=== PATIENT | male | born 1950 | race Caucasian/White ===

== ENCOUNTER → 2019-03-25 14:06 | Outpatient (CLI) | payer MEDICARE, SELFPAY | PROVIDERS: PCP Family Medicine; Visit Provider Family Medicine | DX: M81.0 Age-related osteoporosis without current pathological fracture (principal) | CPT/HCPCS: 77080 ==

== ENCOUNTER 2019-06-08 09:05 | Emergency (ER) | payer MEDICARE, SELFPAY ==
[2019-06-08 09:15] VITALS: BP 155/79; PULSE 67; RESP 18; TEMP 37.1; O2SAT 92; BMI 19.8
--- NOTE | 2019-06-08 11:11 | DI.RAD.S_ITS ---
PROCEDURE: XR CHEST 2V INDICATIONS: r/o pneumonia TECHNIQUE: 2 views of the chest were acquired. COMPARISON: [facility], CR, XR ABDOMEN 1 VIEW, 07/18/2017, 14:05. FINDINGS: Surgical changes and devices: None. Lungs and pleura: Linear areas of increased attenuation are identified at the left lung base, which are new since the previous exam. A similar appearance to a much lesser degree is present at the left lung base. Mediastinum: Mediastinal contours are normal. Heart size is normal. Bones and chest wall: No suspicious bony abnormalities. Extra convex curvature of the lumbar spine is present. Degenerative changes of the shoulders and spine are present, but not well characterized. Soft tissues appear unremarkable. IMPRESSION: Right basilar consolidation probably represents atelectasis. Superimposed pneumonia may be present. Please correlate clinically. Dictated by: Joo Ansari M.D. on 06/08/2019 at 10:55 Approved by: Joo Ansari M.D. on 06/08/2019 at 10:56
[2019-06-08 11:22] LABS: Add Manual Diff / Slide Review NO; Basophils Absolute Auto 0 /uL (0-100); Basophils Percent Auto 0.2 % (0-2); Eosinophils Absolute Auto 0 /uL (0-450); Eosinophils Percent Auto 0.2 % (2-4); Hematocrit 40.7 % (41-53); Hemoglobin 13.5 g/dL (13.5-17.5); Lymphocytes Absolute Auto 1900 /uL (1100-4500); Lymphocytes Percent Auto 12.6 % (25-40); Mean Corpuscular HGB Conc 33.3 % (30-36); Mean Corpuscular Hemoglobin 27.9 PG (26-34); Mean Corpuscular Volume 83.7 fL (80-100); Monocytes Absolute Auto 1100 /uL (0-900); Monocytes Percent Auto 7.1 % (3-14); Neutrophils Absolute Auto 12100 /uL (1500-7000); Neutrophils Percent Auto 79.9 % (50-75); Platelet Count 263 X10^3/uL (150-400); Red Blood Cell Count 4.86 X10^6/uL (4.5-5.9); Red Cell Distribution Width 15.3 % (11.6-14.8); White Blood Cell Count 15.1 X10^3/uL (4.5-11.0)
[2019-06-08 11:27] LABS: BUN Creatinine Ratio 26.3 (6-22); Blood Urea Nitrogen 21 mg/dL (9-20); Carbon Dioxide 36 mmol/L (22-32); Chloride 94 mmol/L (98-107); Estimated Glomerular Filt Rate > 60.0 mL/min (>60); Glucose 91 mg/dL (80-110); HEMOLYSIS < 15 (0-50); Potassium 4.2 mmol/L (3.4-5.1); Sodium 136 mmol/L (137-145)
[2019-06-08 11:43] LABS: C-Reactive Protein Quant 8.8 mg/dL (<1.0)
[2019-06-08 11:50] LABS: Erythrocyte Sedimentation Rate 23 MM/HR (0-15)
--- NOTE | 2019-06-08 12:06 | ED.FEVER ---
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 Patient states his ancestry is asking nauseated [facility], but that he is the only person in his family afflicted by the Mediterranean fever. Patient states that his symptoms began yesterday. He states his temperature at highest was less than 101. He states he has a pain in his right side, inside the rib cage. He states this is his usual focus of pain when he has a flare-up. The patient denies any other symptoms that are unusual. No nausea or vomiting. No abdominal pain. No sore throat or body aches. No shortness of breath. The patient states he is fairly healthy otherwise. No other complaints at this time. He states he is not currently taking colchicine chronically. Related Data Home Medications Medication Instructions Recorded Confirmed loperamide [Imodium A-D] 1 mg PO PRN PRN #0 01/03/16 alfuzosin 10 mg PO QDAY #0 06/01/16 Previous Rx's Medication Instructions Recorded TEMAZEPAM (RESTORIL) 15 mg PO HS #30 05/14/12 fluticasone propionate 2 spray INTRANASAL QDAY #1 spray 06/08/16 alendronate [Fosamax] 0 PO QWEEK #12 tab 11/21/16 colchicine 0.6 mg PO BID #20 cap 06/08/19 Review of Systems Constitutional Constitutional: Denies chills, Denies fatigue, Reports fever(s), Denies frequent falls, Denies lethargy and Denies weakness Eyes Eyes: Denies change in vision, Denies eye discharge, Denies irritation and Denies loss of vision ENT Ears, Nose, Mouth, and Throat: Denies change in voice, Denies dizziness, Denies neck pain, Denies sore throat and Denies throat swelling Cardiovascular Cardiovascular: Reports chest pain (Right lateral), Denies irregular heart rhythm, Denies lightheadedness, Denies palpitations, Denies dyspnea, Denies dyspnea on exertion and Denies orthopnea Respiratory Respiratory: Denies cough, Denies dyspnea, Denies dyspnea on exertion and Denies wheezing Gastrointestinal Gastrointestinal: Denies abdominal pain, Denies change in bowel habits, Denies diarrhea, Denies nausea and Denies vomiting Genitourinary Genitourinary: Denies hematuria, Denies flank pain, Denies urinary incontinence and Denies urinary urgency Musculoskeletal Musculoskeletal: Denies back pain, Denies muscle weakness, Denies neck pain, Denies numbness and Denies tingling Integumentary/Breasts Skin/Breast: Denies pruritus, Denies erythema, Denies rash and Denies wounds Neurologic Neurologic: Denies behavioral changes, Denies confusion, Denies dizziness, Denies frequent falls, Denies loss of vision, Denies numbness, Denies tingling and Denies weakness Psychiatric Psychiatric: Denies anxiety, Denies behavioral changes, Denies confusion, Denies depression, Denies homicidal ideation and Denies suicidal ideation Endocrine Endocrine: Denies fatigue, Denies flushing and Denies palpitations Hematologic/Lymphatic Hematologic/Lymphatic: Denies easy bruising Allergic/Immunologic Allergic/Immunologic: Denies urticaria, Denies throat swelling and Denies wheezing Patient History Medical History Age-related osteoporosis without current pathological fracture (11/16/16) Benign non-nodular prostatic hyperplasia with lower urinary tract symptoms (12/02/15) Familial Mediterranean fever (Acute) Gastroesophageal reflux disease without esophagitis (01/03/16) History of renal calculi (01/03/16) Hypercalcemia (01/03/16) Hyperparathyroidism (10/27/16) Mixed hyperlipidemia (01/03/16) Neutropenia (01/03/16) Polyp of colon (11/21/16) Primary insomnia (01/03/16) Retention of urine (12/02/15) Seasonal allergic rhinitis due to pollen (01/03/16) Tinnitus of both ears (01/03/16) Social History Smoking Status: Never smoker Exam Initial Vital Signs Initial Vital Signs: Vital Signs Temperature 98.7 F 06/08/19 09:15 Pulse Rate 67 06/08/19 09:15 Respiratory Rate 18 06/08/19 09:15 Blood Pressure 155/79 H 06/08/19 09:15 Pulse Oximetry 92 06/08/19 09:15 Const General: cooperative and well developed Nutritional Appearance: well nourished [facility] Head: normocephalic and atraumatic Ears: external ears normal Nose: external nose normal and No nasal discharge Face and sinus: face symmetric and No dry mucous membranes Mouth: oral mucosae normal and moist mucous membranes Teeth and gingiva: dentition normal Eyes General: appearance normal, both eyes and all related structures Eyelids: eyelids normal Conjunctivae: conjunctivae normal Sclera: sclerae normal Pupils: PERRL EOM: EOM intact bilaterally Neck Neck: normal visual inspection, trachea midline, No lymphadenopathy, No midline deformity and No JVD Lymphatic: No lymphedema Chest Chest: normal inspection of the chest Resp Effort & Inspection: normal respiratory effort, able to speak in complete sentences, no respiratory distress and no use of accessory muscles Auscultation: clear to auscultation bilaterally, no rales, no rhonchi and no wheezes Cardio Rate: regular rate Rhythm: regular rhythm Heart Sounds: no click, no gallops, no murmurs and no rubs Pulses: normal peripheral pulses GI Inspection: non-distended Palpation: soft, no hepatosplenomegaly, No guarding, No pulsatile mass and No tender Auscultation: normal bowel sounds Back/Spine/Pelvis Back: No CVA tenderness Cervical Spine: cervical ROM normal and No pain with cervical ROM Thoracic/Lumbar Spine: thoracic and lumbar spine normal to inspection Skin General: no rashes or lesions noted, No jaundice and No petechiae Neuro General: alert, oriented x3, gait normal and no focal motor deficits Speech: speech normal Extrem General: full ROM, no clubbing, cyanosis or edema, no pedal edema and no calf tenderness Psych Appearance: well kempt Mental Status: mental status grossly normal Attitude: cooperative Thought Content: normal and suicidality Judgment: judgment good Course Course Course Narrative: The patient was treated with colchicine in the emergency department worked up with labs, which white blood cell count elevation and also elevations of the CRP and sed rate. Chest x-ray was unremarkable. I have given the patient prescription for colchicine. We've discussed home management of the symptoms, as well as the usual indications for return. At this time, the patient does not have symptoms that are different from those of his usual FMF flare ups, and no other cause has been found on workup. The patient is stable for discharge home. Orders Ordered: Discontinued Medications Colchicine (Colcrys) 0.6 mg PO NOW ONE Stop: 06/08/19 11:59 Last Admin: 06/08/19 12:08 Dose: 0.6 mg Documented by: CAROLINA Vital Signs Vital signs: Vital Signs - 8 hr 06/08/19 09:15 Temperature 98.7 F Pulse Rate 67 Respiratory Rate 18 Blood Pressure 155/79 H Pulse Oximetry 92 MDM - Fever Medical Records Attestation: I reviewed the patient's medical records. Lab Data Attestation: I reviewed the patient's lab results. Result diagrams: 06/08/19 10:55 06/08/19 10:55 Labs: Lab Results 06/08/19 06/08/19 06/08/19 Range/Units 10:55 10:55 10:55 WBC 15.1 H (4.5-11.0) X10^3/uL RBC 4.86 (4.5-5.9) X10^6/uL Hgb 13.5 (13.5-17.5) g/dL Hct 40.7 L (41-53) % MCV 83.7 (80-100) fL MCH 27.9 (26-34) PG MCHC 33.3 (30-36) % RDW 15.3 H (11.6-14.8) % Plt Count 263 (150-400) X10^3/uL Neut % (Auto) 79.9 H (50-75) % Lymph % (Auto) 12.6 L (25-40) % Isabella % (Auto) 7.1 (3-14) % Eos % (Auto) 0.2 L (2-4) % Baso % (Auto) 0.2 (0-2) % Neut # (Auto) 36911 H (8541-0756) /uL Lymph # (Auto) 1900 (7793-9662) /uL Isabella # (Auto) 1100 H (0-900) /uL Eos # (Auto) 0 (0-450) /uL Baso # (Auto) 0 (0-100) /uL ESR 23 H (0-15) MM/HR Sodium 136 L (137-145) mmol/L Potassium 4.2 (3.4-5.1) mmol/L Chloride 94 L (98-107) mmol/L Carbon Dioxide 36 H (22-32) mmol/L BUN 21 H (9-20) mg/dL Creatinine 0.80 (0.66-1.25) mg/dL Estimated GFR > 60.0 (>60) mL/min BUN/Creatinine Ratio 26.3 H (6-22) Glucose 91 (80-110) mg/dL Calcium 9.0 (8.4-10.2) mg/dL C-Reactive Protein (<1.0) mg/dL 06/08/19 Range/Units 10:55 WBC (4.5-11.0) X10^3/uL RBC (4.5-5.9) X10^6/uL Hgb (13.5-17.5) g/dL Hct (41-53) % MCV (80-100) fL MCH (26-34) PG MCHC (30-36) % RDW (11.6-14.8) % Plt Count (150-400) X10^3/uL Neut % (Auto) (50-75) % Lymph % (Auto) (25-40) % Isabella % (Auto) (3-14) % Eos % (Auto) (2-4) % Baso % (Auto) (0-2) % Neut # (Auto) (3771-4901) /uL Lymph # (Auto) (0939-7205) /uL Isabella # (Auto) (0-900) /uL Eos # (Auto) (0-450) /uL Baso # (Auto) (0-100) /uL ESR (0-15) MM/HR Sodium (137-145) mmol/L Potassium (3.4-5.1) mmol/L Chloride (98-107) mmol/L Carbon Dioxide (22-32) mmol/L BUN (9-20) mg/dL Creatinine (0.66-1.25) mg/dL Estimated GFR (>60) mL/min BUN/Creatinine Ratio (6-22) Glucose (80-110) mg/dL Calcium (8.4-10.2) mg/dL C-Reactive Protein 8.8 H (<1.0) mg/dL Imaging Data Chest x-ray: My Impression: PROCEDURE: XR CHEST 2V INDICATIONS: r/o pneumonia TECHNIQUE: 2 views of the chest were acquired. COMPARISON: [facility], CR, XR ABDOMEN 1 VIEW, 07/18/2017, 14:05. FINDINGS: Surgical changes and devices: None. Lungs and pleura: Linear areas of increased attenuation are identified at the left lung base, which are new since the previous exam. A similar appearance to a much lesser degree is present at the left lung base. Mediastinum: Mediastinal contours are normal. Heart size is normal. Bones and chest wall: No suspicious bony abnormalities. Extra convex curvature of the lumbar spine is present. Degenerative changes of the shoulders and spine are present, but not well characterized. Soft tissues appear unremarkable. IMPRESSION: Right basilar consolidation probably represents atelectasis. Superimposed pneumonia may be present. Please correlate clinically. Dictated by: Joo Ansari M.D. on 06/08/2019 at 10:55 Approved by: Joo Ansari M.D. on 06/08/2019 at 10:56 Discharge Plan Departure Patient Disposition: Home Clinical Impression: Chest pain, pleuritic, Familial Mediterranean fever Discharge Date/Time: 06/08/19 12:16 Instructions: DI for Chest Pain Prescriptions: New colchicine 0.6 mg capsule 0.6 mg PO BID Qty: 20 RF: 0 No Action TEMAZEPAM (RESTORIL) 15 mg PO HS Qty: 30 RF: 0 loperamide [Imodium A-D] 1 MG/7.5 ML liquid 1 mg PO PRN PRNQty: 0 RF: 0 alfuzosin 10 MG tablet extended release 24 hr 10 mg PO QDAY Qty: 0 RF: 0 fluticasone propionate 16 GM spray,suspension 2 spray Intranasal QDAY Qty: 1 RF: 1 alendronate [Fosamax] 70 MG tablet 0 PO QWEEK Qty: 12 RF: 3 Referrals: Anders Wasserman MD [Primary Care Provider] -
[2019-06-08] MEDS: COLCHICINE 0.6 MG TABLET PO (12:08)
[2019-06-08 12:10] VITALS: BP 133/76; PULSE 63; RESP 17; O2SAT 97
== END 2019-06-08 12:16 | disposition home or self-care (01) ==
PROVIDERS: Emergency Provider Emergency Medicine; PCP Family Medicine
DX: R07.81 Pleurodynia (principal); M04.1 Periodic fever syndromes; R79.89 Other specified abnormal findings of blood chemistry
CPT/HCPCS: 36415; 71046; 80048; 85025; 85651; 86140; 99284

== ENCOUNTER 2021-06-09 17:04 | Emergency (ER) | payer MEDICARE, SELFPAY ==
[2021-06-09 17:20] VITALS: BP 164/92; PULSE 70; RESP 18; TEMP 37.2; O2SAT 98; BMI 20.5
--- NOTE | 2021-06-09 17:40 | DI.RAD.S_ITS ---
PROCEDURE: XR RIBS LT MIN 3V W CXR1V INDICATIONS: fall TECHNIQUE: To views of the left ribs were acquired, along with a single view chest. COMPARISON: None. FINDINGS: Surgical changes and devices: None. Bones and chest wall: Subtle cortical irregularity involving left posterior 6th and 7th ribs concerning for minimally displaced left posterior rib fractures. No suspicious bony lesions. Overlying soft tissues appear unremarkable. Lungs and pleura: Blunting of left costophrenic angle is seen suggestive of small left pleural effusion and left basilar atelectasis. No definite focal infiltrate. No gross pneumothorax. Chronic emphysematous changes are noted. Mediastinum: Mediastinal contours appear normal. Heart size is normal. IMPRESSION: Suggestion of subtle left posterior lateral 6th and 7th rib fractures with small left pleural effusion and left basilar atelectasis. No gross pneumothorax. Dictated by: Fabrice Gibson M.D. on 06/09/2021 at 18:04 Approved by: Fabrice Gibson M.D. on 06/09/2021 at 18:06
--- NOTE | 2021-06-09 17:57 | ED.FALL ---
HPI - Fall <Caitie Garcia [facility] - Last Filed: 06/09/21 19:26> General Chief Complaint: Fall Stated Complaint: Fall,Broken Ribs,Fluid in Lungs Time Seen by Provider: 06/09/21 17:57 Source: patient Mode of arrival: Wheelchair History of Present Illness HPI Narrative: 70-year-old male presents to the emergency department for left rib pain, shortness of breath after having 2 falls in the last week. Patient reports he fell again 2 days ago and he has been having shortness of breath since. He denies any wheezing, he reports that he is more short of breath when he lays flat but it is tolerable when he is sitting upright. Patient reports that he took some leftover Percocet for the pain last week, and it helped him go to sleep. Patient denies having a fever, he denies nausea or vomiting, he reports that he has been using a wheelchair a little bit more to get around so that he does not fall. Patient reports that he lives at home with his , and they help each other. Patient reports his fall was due to tripping on something and he did not lose consciousness or hit his head. Related Data Home Medications Medication Instructions Recorded Confirmed loperamide 1 mg/7.5 mL oral liquid 1 mg PO PRN PRN #0 01/03/16 (Imodium A-D) alfuzosin 10 mg tablet,extended 10 mg PO QDAY #0 06/01/16 release 24 hr Previous Rx's Medication Instructions Recorded TEMAZEPAM (RESTORIL) 15 mg PO HS #30 05/14/12 fluticasone propionate 50 2 spray INTRANASAL QDAY #1 spray 06/08/16 mcg/actuation nasal spray,suspension alendronate 70 mg tablet (Fosamax) 0 PO QWEEK #12 tab 11/21/16 colchicine 0.6 mg capsule 0.6 mg PO BID #20 cap 06/08/19 amoxicillin 875 mg-potassium 1 tab PO BID 7 Days #14 tab 06/09/21 clavulanate 125 mg tablet (Augmentin) amoxicillin 875 mg-potassium 1 tab PO BID 7 Days #14 tab 06/09/21 clavulanate 125 mg tablet (Augmentin) hydrocodone 5 mg-acetaminophen 325 1 tab PO BID PRN #7 tab 06/09/21 mg tablet amoxicillin 875 mg-potassium 1 tab PO BID #14 tab 06/10/21 clavulanate 125 mg tablet (Augmentin) Review of Systems <TERESITA Khan - Last Filed: 06/09/21 19:26> Review of Systems Narrative: General: denies fever, chills Head/Neck: denies headache, neck pain Eyes: denies visual changes, eye pain Cardio: denies chest pain, chest pressure or palpitations Respiratory: Endorses mild shortness of breath with occasional nonproductive cough GI: denies abdominal pain, nausea, vomiting, or diarrhea : denies dysuria, hematuria MSK: denies joint pain, muscle weakness Skin: denies rash, itching Neuro: denies numbness, tingling Patient History <TERESITA Khan - Last Filed: 06/09/21 19:26> Medical History Age-related osteoporosis without current pathological fracture (11/16/16) Benign non-nodular prostatic hyperplasia with lower urinary tract symptoms (12/02/15) Familial Mediterranean fever Gastroesophageal reflux disease without esophagitis (01/03/16) History of renal calculi (01/03/16) Hypercalcemia (01/03/16) Hyperparathyroidism (10/27/16) Mixed hyperlipidemia (01/03/16) Neutropenia (01/03/16) Polyp of colon (11/21/16) Primary insomnia (01/03/16) Retention of urine (12/02/15) Seasonal allergic rhinitis due to pollen (01/03/16) Tinnitus of both ears (01/03/16) Social History Smoking Status: Never smoker Smoking Status: Never smoker Substance Use Type: does not use Exam <TERESITA Khan - Last Filed: 06/09/21 19:26> Narrative Exam Narrative: Independently reviewed vitals signs and nursing notes. General: Awake, alert, nontoxic, no cardiorespiratory distress Head/Neck: Atraumatic, neck full range of motion Eyes: EOMI, conjunctiva normal Nose: nares patent, no rhinorrhea Mouth/Throat: moist mucus membranes, posterior pharynx normal, no oral lesions Cardio: Regular rate and rhythm, no peripheral edema Respiratory: respirations unlabored without wheezing, stridor, or rales. No retractions., left lower lobe with mild amount of crackles, this is consistent with his atelectasis on x-ray. Patient does have tenderness to the posterior area between his 6th and 8th rib. X-ray shows that his ribs 6. And 7 are fractured without signs of pneumothorax. Breath sounds are clear throughout all other lobes GI: Abdomen soft, nontender to palpation MSK: Moves all extremities, neurovascularly intact Skin: Normal capillary refill, no rash Neuro: Normal speech and cognition, normal gait Initial Vital Signs Initial Vital Signs: Vital Signs Temperature 98.9 F 06/09/21 17:20 Pulse Rate 70 06/09/21 17:20 Respiratory Rate 18 06/09/21 17:20 Blood Pressure 164/92 H 06/09/21 17:20 Pulse Oximetry 98 06/09/21 17:20 <Anaylei Rios DO - Last Filed: 06/10/21 08:00> Initial Vital Signs Initial Vital Signs: Vital Signs Temperature 98.9 F 06/09/21 17:20 Pulse Rate 70 06/09/21 17:20 Respiratory Rate 18 06/09/21 17:20 Blood Pressure 164/92 H 06/09/21 17:20 Pulse Oximetry 98 06/09/21 17:20 Course <TERESITA Khan - Last Filed: 06/09/21 19:26> Orders Ordered: Discontinued Medications Hydrocodone Bitart/Acetaminophen (Hydrocodone/Acet 5/325 Prepack) 1 bottle MISC SEEINSTR ONE Stop: 06/09/21 18:09 Last Admin: 06/09/21 18:30 Dose: 1 bottle Documented by: RICARDO Amoxicillin/Clavulanate Potassium (Amoxicillin/Clav 875/125 Mg) 1 tab PO NOW ONE Stop: 06/09/21 18:09 Last Admin: 06/09/21 18:30 Dose: 1 tab Documented by: RICARDO Vital Signs Vital signs: Vital Signs - 8 hr 06/09/21 17:20 Temperature 98.9 F Pulse Rate 70 Respiratory Rate 18 Blood Pressure 164/92 H Pulse Oximetry 98 <Anayeli Rios DO - Last Filed: 06/10/21 08:00> Orders Ordered: Discontinued Medications Hydrocodone Bitart/Acetaminophen (Hydrocodone/Acet 5/325 Prepack) 1 bottle MISC SEEINSTR ONE Stop: 06/09/21 18:09 Last Admin: 06/09/21 18:30 Dose: 1 bottle Documented by: RICARDO Amoxicillin/Clavulanate Potassium (Amoxicillin/Clav 875/125 Mg) 1 tab PO NOW ONE Stop: 06/09/21 18:09 Last Admin: 06/09/21 18:30 Dose: 1 tab Documented by: RICARDO Vital Signs Vital signs: Vital Signs - 8 hr 06/09/21 17:20 Temperature 98.9 F Pulse Rate 70 Respiratory Rate 18 Blood Pressure 164/92 H Pulse Oximetry 98 MDM - Fall <Caitie Garcia [facility] - Last Filed: 06/09/21 19:26> Imaging Data Chest x-ray: Radiologist's Impression: PROCEDURE:? XR CHEST 2V ? INDICATIONS:? r/o pneumonia ? TECHNIQUE:? 2 views of the chest were acquired.? ? COMPARISON:? [facility], CR, XR ABDOMEN 1 VIEW, 07/18/2017, 14:05. ? FINDINGS:? ? Surgical changes and devices:? None.? ? Lungs and pleura: Linear areas of increased attenuation are identified at the left lung base, which are new since the previous exam.? A similar appearance to a much lesser degree is present at the left lung base. ? Mediastinum:? Mediastinal contours are normal.? Heart size is normal.? ? Bones and chest wall:? No suspicious bony abnormalities.? Extra convex curvature of the lumbar spine is present.? Degenerative changes of the shoulders and spine are present, but not well characterized. Soft tissues appear unremarkable.? ? IMPRESSION: Right basilar consolidation probably represents atelectasis.?Superimposed pneumonia may be present.? Please correlate clinically. ?? ? Dictated by: Joo Ansari M.D. on 06/08/2019 at 10:55 ? ? Approved by: Joo Ansari M.D. on 06/08/2019 at 10:56 ? [facility] Narrative Medical decision making narrative: 70-year-old male presents to the emergency department complaining of left posterior rib pain and occasional shortness of breath with exertion. Patient has had 2 falls over the last week and reports that he has had left rib pain since his 1st fall. He tripped on something at that time he denies any dizziness, hitting his head, or loss of consciousness. He is not on any blood thinners. Patient with mild crackles left lower lobe, x-ray shows left posterior lateral 6th and 7th rib fractures with small left pleural effusion and left basilar atelectasis without any gross pneumothorax. Multiple causes of chest pain considered including DE, PE, pneumothorax, pneumonia, aortic dissection, and pleurisy. Patient reports no radiation, no diaphoresis, no provocation with exertion, and no vomiting. Recommended patient follow-up with Dr. Wasserman within a week for recheck. Patient understands to return to the emergency department for worsening shortness of breath, fever, lethargy, or pain which he can not manage. Patient is appropriate and amenable to discharge home. Vital signs are stable on repeat examination is unremarkable. Patient has been informed of results. Patient has been given strict return to ER precautions for any new or worsening symptoms. Patient understands to follow up closely with outpatient providers as instructed. Patient understands plan and agrees to discharge home. All questions and concerns answered at this time. Discharge Plan Departure Patient Disposition: Home Clinical Impression: Pleural effusion Pneumonia Qualifiers: Pneumonia type: due to unspecified organism Laterality: left Lung location: lower lobe of lung Qualified Code(s): J18.9 - Pneumonia, unspecified organism Closed rib fracture Qualifiers: Encounter type: subsequent encounter Rib fracture type: multiple ribs Laterality: left Fracture healing: with routine healing Qualified Code(s): S22.42XD - Multiple fractures of ribs, left side, subsequent encounter for fracture with routine healing Instructions: How to Prevent Falls Activity Restrictions/Additional Instructions: *You have been diagnosed with rib fractures of your 6th and 7th ribs, a small pleural effusion on the left with pneumonia in the base of your left lung. Try to stay upright as much as possible during the day, rest when you need to, remember to take deep breaths every hour and cough to clear your secretions. Use Tylenol or ibuprofen as needed for fever, wear your arm sling if it is helpful when your out of bed. Please follow-up with Dr. Wasserman in 1-2 weeks. I hope you feel better soon, stay hydrated, I have sent an antibiotic to your pharmacy. *What to do: *Please continue to take your regular medications as directed. [ x] New medication prescriptions sent to your pharmacy: [[facility] ] [ ] New medication written as a paper prescription [ ] No new medications given *Please follow up with your primary care provider in 2-3 days, call for an appointment. Let them know you were seen in the Emergency Department and that we ask that you be seen in follow up. We will electronically transmit a record of today's note if your PCP is in our system *If you do not have a primary care provider please contact the [facility] Resource line at [phone]. They will ask some questions about your medical history and help get you set up with a doctor in the community. *Return to Emergency Department if you should have any new, worsening or concerning symptoms, such as [fever greater than 101F, chills, worsening pain, persistent vomiting or other bothersome symptoms] Prescriptions: New amoxicillin-pot clavulanate [Augmentin] 875-125 mg tablet 1 tab PO BID 7 Days Qty: 14 0RF amoxicillin-pot clavulanate [Augmentin] 875-125 mg tablet 1 tab PO BID 7 Days Qty: 14 0RF hydrocodone-acetaminophen 5-325 mg tablet 1 tab PO BID PRN (Reason: pain) Qty: 7 0RF amoxicillin-pot clavulanate [Augmentin] 875-125 mg tablet 1 tab PO BID Qty: 14 0RF No Action TEMAZEPAM (RESTORIL) 15 mg PO HS Qty: 30 0RF loperamide [Imodium A-D] 1 MG/7.5 ML liquid 1 mg PO PRN PRNQty: 0 0RF alfuzosin 10 MG tablet extended release 24 hr 10 mg PO QDAY Qty: 0 0RF fluticasone propionate 16 GM spray,suspension 2 spray Intranasal QDAY Qty: 1 1RF alendronate [Fosamax] 70 MG tablet 0 PO QWEEK Qty: 12 3RF colchicine 0.6 mg capsule 0.6 mg PO BID Qty: 20 0RF Referrals: Anders Wasserman MD [Primary Care Provider] - <Anayeli Rios DO - Last Filed: 06/10/21 08:00> Cosign ED Attending Cosignature Attestation: Diagnosed day bonner has been reviewed.
[2021-06-09] MEDS: HYDROCODONE/ACET 5/325 PREPACK 1 BOTTLE MISC (18:30)
[2021-06-09] MEDS: AMOXICILLIN/CLAV 875/125 MG 1 TAB PO (18:30)
== END 2021-06-09 18:40 | disposition home or self-care (01) ==
PROVIDERS: Emergency Provider Nurse Practitioner Critical Care Medicine; PCP Family Medicine
DX: S22.42XA Multiple fractures of ribs, left side, initial encounter for closed fracture (principal); J18.9 Pneumonia, unspecified organism; W19.XXXA Unspecified fall, initial encounter
CPT/HCPCS: 71101; 99283

== ENCOUNTER → 2021-07-17 11:29 | Outpatient (CLI) | payer MEDICARE, SELFPAY ==
--- NOTE | 2021-07-17 11:32 | DI.RAD.S_ITS ---
PROCEDURE: XR RIBS LT MIN 3V W CXR1V INDICATIONS: Fall TECHNIQUE: 2 views of the left ribs were acquired, along with a single view chest. COMPARISON: [facility], CR, XR RIBS LT MIN 3V W CXR1V, 06/09/2021, 17:37. FINDINGS: Surgical changes and devices: None. Bones and chest wall: A marker is placed upon the area of clinical concern. Within this region, no displaced rib fracture or other significant rib abnormality can be seen. There are mildly displaced, healing left posterior lateral 6th, 7th, and 8th rib fractures. No suspicious bony lesions. Age-appropriate bony degenerative changes are seen. S-shaped scoliotic curvature is seen. Overlying soft tissues appear unremarkable. Lungs and pleura: No pleural effusions or pneumothorax. Lungs appear clear. Mediastinum: Mediastinal contours appear normal. Heart size is normal. IMPRESSION: No acute fractures are seen. Healing fractures of the left 6th, 7th, and 8th rib fractures. No pneumothorax. Scoliosis. Dictated by: Nagi Pink M.D. on 07/17/2021 at 10:55 Approved by: Nagi Pink M.D. on 07/17/2021 at 10:57
== END ==
PROVIDERS: PCP Family Medicine; Referring Provider Physician Assistant; Visit Provider Physician Assistant
DX: S22.42XD Multiple fractures of ribs, left side, subsequent encounter for fracture with routine healing (principal); R07.81 Pleurodynia; M41.9 Scoliosis, unspecified
CPT/HCPCS: 71101

== ENCOUNTER 2021-12-07 19:10 | Observation (INO) | payer MEDICARE, SELFPAY ==
[2021-12-07 19:13] VITALS: BP 176/89; PULSE 74; RESP 18; TEMP 36.6; O2SAT 98; BMI 19.8
--- NOTE | 2021-12-07 19:18 | ED.SKABFB ---
HPI - Skin/Abscess/Foreign Bdy General Chief complaint: Skin/Abscess/Foreign Body Stated complaint: FB stuck in throat Time Seen by Provider: 12/07/21 19:17 Source: patient Mode of arrival: Ambulatory Limitations: no limitations History of Present Illness HPI narrative: This is a 71-year-old male who states he got a piece of toe food stuck in his throat while waiting for the [place] to go back home to [place]. Patient has history of neurologic disease, frequent PVCs, gout. He has had episodes where food got stuck in the past but he was always able to get it to pass on his own. He is never had any EGD or scope. He states he has been spitting intermittently and can not keep any fluids down. Does not feel like he is any difficulty breathing. He feels like it is up in his mid throat. He does not have any hoarseness or voice change. Related Data Home Medications Medication Instructions Recorded Confirmed alfuzosin 10 mg tablet,extended 10 mg PO QDAY ##0 06/01/16 12/07/21 release 24 hr alprazolam 0.25 mg tablet 0.25 mg PO BEDTIME PRN Sleep 07/17/21 12/07/21 duloxetine 20 mg capsule,delayed 40 mg PO QAM 07/17/21 12/07/21 release metoprolol succinate 25 mg capsule 25 mg PO DAILY 07/17/21 12/07/21 sprinkle, ext. release 24 hr tadalafil 5 mg tablet (Cialis) 5 mg PO DAILY 07/17/21 12/07/21 colchicine 0.6 mg tablet 0.6 mg PO DAILY 12/07/21 12/07/21 finasteride 5 mg tablet 5 mg PO QPM 12/07/21 12/07/21 ipratropium bromide 21 mcg (0.03 See Rx Instructions .Route .COMPLEX 12/07/21 12/07/21 %) nasal spray nortriptyline 10 mg capsule 20 mg PO QPM 12/07/21 12/07/21 Previous Rx's Medication Instructions Recorded TEMAZEPAM (RESTORIL) 15 mg PO HS ##30 05/14/12 Allergies Allergy/AdvReac Type Severity Reaction Status Date / Time atropine Allergy Intermediate pupil Verified 12/07/21 21:56 dilation erythromycin base Allergy Intermediate Verified 12/07/21 21:56 Review of Systems Review of Systems ROS Unobtainable: All systems reviewed & are unremarkable except as noted in HPI and below Patient History Medical History (Updated 12/07/21 @ 20:09 by Anayeli Rios DO) Age-related osteoporosis without current pathological fracture (11/16/16) Benign non-nodular prostatic hyperplasia with lower urinary tract symptoms (12/02/15) Familial Mediterranean fever Gastroesophageal reflux disease without esophagitis (01/03/16) History of renal calculi (01/03/16) Hypercalcemia (01/03/16) Hyperparathyroidism (10/27/16) Mixed hyperlipidemia (01/03/16) Neutropenia (01/03/16) Polyp of colon (11/21/16) Primary insomnia (01/03/16) Retention of urine (12/02/15) Seasonal allergic rhinitis due to pollen (01/03/16) Tinnitus of both ears (01/03/16) Social History household members: spouse Smoking Status: Never smoker alcohol intake: never Smoking Status: Never smoker Substance Use Type: does not use Exam Narrative Exam Narrative: GEN: well nourished, well appearing male, alert and oriented x 3, patient appears to be in mild distress. Patient resting comfortably in the chair. HEENT: Atraumatic, pupils are equal round reactive to light, extraocular movements are intact, nares are clear, Throat is clear without any exudates, erythema, tonsillar enlargement or uvular deviation, no stridor, no hoarseness or voice changes. HEART: Regular rate and rhythm without murmur, clicks, rubs. LUNGS:Lungs clear to auscultation, no wheezes, rales, crackles, chest moves symmetrically ABD:bowel sounds normal, soft, non-tender, no guarding, rebound, rigidity, no masses noted, no hepatosplenomegaly :No CVA tenderness MSCL: Non-tender, no muscle atrophy, muscles strength 5/5 upper and lower extremities, full range of motion. NEURO:CN 2-12 intact, sensation normal SKIN: No rash, erythema or other skin changes. Initial Vital Signs Initial Vital Signs: Vital Signs Temperature 97.9 F 12/07/21 19:13 Pulse Rate 74 12/07/21 19:13 Respiratory Rate 18 12/07/21 19:13 Blood Pressure 176/89 H 12/07/21 19:13 Pulse Oximetry 98 12/07/21 19:13 Oxygen Delivery Method 12/07/21 19:13 Course Orders Ordered: Sodium Chloride (Normal Saline 0.9%) 1,000 mls @ 84 mls/hr IV CONT GENOVEVA Last Admin: 12/07/21 22:37 Dose: 84 mls/hr Documented By: KRYSTLE Morphine Sulfate (Morphine 2 Mg/Ml Inj) 2 mg IV Q2HR PRN PRN Reason: Pain, Moderate (4-6) Last Admin: 12/07/21 22:38 Dose: 2 mg Documented By: KRYSTLE Ondansetron HCl (Ondansetron 4 Mg/2 Ml Inj) 4 mg IV Q6HR PRN PRN Reason: Nausea And Vomiting Last Admin: 12/08/21 00:14 Dose: 4 mg Documented By: АННА Discontinued Medications Diazepam (Diazepam 10 Mg/2 Ml Syringe) 2 mg IV NOW ONE Stop: 12/07/21 20:26 Last Admin: 12/07/21 20:49 Dose: 2 mg Documented By: ASTRID Glucagon (Glucagon,Human Recombinant 1 Mg/Ml Vial) 1 mg IV NOW ONE Stop: 12/07/21 19:51 Last Admin: 12/07/21 19:59 Dose: 1 mg Documented By: ASTRID Reevaluation(s) Reevaluation #1: Patient failed with glucagon and carbonated beverage. Time: 20:09 Consultations Consultation #1: Dr. Salcido accepts for observation with plan to take first thing in the morning. Time: 20:09 Vital Signs Vital signs: Vital Signs - 8 hr 12/07/21 19:13 Temperature 97.9 F Pulse Rate 74 Respiratory Rate 18 Blood Pressure 176/89 H Pulse Oximetry 98 Oxygen Delivery Method Room Air MDM - Skin/Abscess/Foreign Bdy MDM Narrative Medical decision making narrative: This is a 71-year-old male with prior neurologic disorder who was eating earlier today about hours prior to initial evaluation felt a piece of tofu get stuck. He has not been able to keep any fluids down although he is not persistently having to spit out his saliva. Patient has had similar episodes but never required any intervention. Given glucagon here in the department with oral carbonated beverage concurrently with and was unsuccessful. Patient also tried carbonated beverage with heel jump and unsuccessful. Discharge Plan Departure Patient Disposition: Admitted as Observation Clinical Impression: Food impaction of esophagus Admit Date/Time: 12/07/21 20:09 Admit Provider: Gauri Salcido
[2021-12-07] MEDS: GLUCAGON,HUMAN RECOMBINANT 1 MG/ML VIAL IV (19:59)
--- NOTE | 2021-12-07 20:22 | PC.NURSE ---
Medicated with glucagon and tried having patient swallow ritchie tucker, pt reports some of the ritchie tucker went down but some came out of nose. reports still feels like food is stuck in throat.
[2021-12-07] MEDS: diazePAM 10 MG/2 ML SYRINGE 2 MG IV (20:49)
[2021-12-07 21:12] LABS: COVID19 -Nasal RAPID Negative (Negative)
[2021-12-07 21:35] VITALS: BP 168/90; PULSE 71; RESP 20; TEMP 36.8; O2SAT 94
[2021-12-07 21:57] VITALS: BMI 19.8
[2021-12-07] MEDS: SODIUM CHLORIDE 0.9% 1,000 ML 84 ML IV (22:37)
[2021-12-07] MEDS: MORPHINE 2 MG/ML INJ IV (22:38)
[2021-12-08] VITALS (42 sets, daily range): BP systolic 109–185; BP diastolic 54–95; PULSE 59–96; RESP 15–32; TEMP 36.6–37.1; O2SAT 81–100
[2021-12-08] MEDS: ONDANSETRON 4 MG/2 ML INJ IV ×2 (00:14→08:30)
[2021-12-08] MEDS: MORPHINE 2 MG/ML INJ IV ×2 (05:29→20:53)
[2021-12-08] MEDS: KETAMINE 500 MG/5 ML INJ (08:00)
[2021-12-08] MEDS: fentaNYL 100 MCG/2 ML INJ (08:15)
[2021-12-08] MEDS: PANTOPRAZOLE 40 MG VIAL IV (08:30)
--- NOTE | 2021-12-08 08:33 | ED.CONSULT ---
ED Provider Consult/Code Note General Reason for Admission: FB stuck in throat Events leading to Consult/Code: Called to see patient in Code Blue, had been admitted for esophageal foreign body and is in profound respiratory distress, patient actively being bagged Cardiac Additional: Normal sinus Care Provided Description of care provided: Patient was in the process of being bagged respiratory distress with profound hypertension and hypoxemia. RSI medications, glide scope, suction and Gail forceps were at the ready. Ketamine 1 mg/kg followed by rocuronium 0.6 mg/kg were administered, glide scope inserted and large esophageal foreign body noted which was easily removed with Maynor forceps. Given that this is the likely cause of the patient's respiratory failure I did not proceed with intubation, however placed a size 4 eye gel with orders for ongoing pain control and sedation until the rocuronium wears off, my hope is that is situation resolves and would not need intubation given resolution of likely cause, patient signed out to hospitalist and ICU
--- NOTE | 2021-12-08 08:57 | DI.RAD.S_ITS ---
PROCEDURE: XR CHEST 1V INDICATIONS: respiratory distress TECHNIQUE: One view of the chest was acquired. COMPARISON: [facility], CR, XR RIBS LT MIN 3V W CXR1V, 06/09/2021, 17:37. [facility], CR, XR RIBS LT MIN 3V W CXR1V, 07/17/2021, 11:28. (A prior chest radiograph is not available for review from the archive at the time of this dictation.) FINDINGS: Surgical changes and devices: Postoperative clips can be seen within the left supraclavicular region. Lungs and pleura: There is trace blunting of both costophrenic angles. Generalized interstitial prominence can be seen. Mediastinum: The cardiac contours are mildly enlarged. The aorta demonstrates calcification and tortuosity. Bones and chest wall: No suspicious bony lesions. Age-appropriate bony degenerative changes are seen. Remote left-sided rib fractures are seen. Moderate dextroconvex scoliosis is seen. Overlying soft tissues appear unremarkable. IMPRESSION: Mild cardiomegaly with interstitial prominence and potential small pleural effusions. Please correlate mild CHF. Postoperative and degenerative changes are seen. Dictated by: Nagi Pink M.D. on 12/08/2021 at 8:28 Approved by: Nagi Pink M.D. on 12/08/2021 at 8:32
--- NOTE | 2021-12-08 09:41 | PM.CN.EICU ---
History of Present Illness Consult details Chief complaint: FB stuck in throat Narrative: Patient with significant history of hyperlipidemia and ? neuromuscular disease who is admitted for tofu food impaction. Earlier this morning patient had a respiratory arrest secondary tofu dislodging and fully obstructing his airway. He received ketamine, rocuronium, and fentanyl. Tofu was removed and LMA was placed. Brought to ICU bagging via LMA. Patient woke up and LMA was removed. He was transitioned to HFNC/%. Awake and speaking in full sentence. [facility] Medical History (Updated 12/07/21 @ 20:09 by Anayeli Rios DO) Age-related osteoporosis without current pathological fracture (11/16/16) Benign non-nodular prostatic hyperplasia with lower urinary tract symptoms (12/02/15) Familial Mediterranean fever Gastroesophageal reflux disease without esophagitis (01/03/16) History of renal calculi (01/03/16) Hypercalcemia (01/03/16) Hyperparathyroidism (10/27/16) Mixed hyperlipidemia (01/03/16) Neutropenia (01/03/16) Polyp of colon (11/21/16) Primary insomnia (01/03/16) Retention of urine (12/02/15) Seasonal allergic rhinitis due to pollen (01/03/16) Tinnitus of both ears (01/03/16) Social History household members: spouse Smoking Status: Never smoker alcohol intake: never Current Medications Current Medications Medications: Home Medications TEMAZEPAM (RESTORIL) 15 mg PO HS ##30 05/14/12 [Rx Confirmed 12/07/21] alfuzosin 10 mg tablet,extended release 24 hr 10 mg PO QDAY ##0 06/01/16 [History Confirmed 12/07/21] alprazolam 0.25 mg tablet 0.25 mg PO BEDTIME PRN Sleep 07/17/21 [History Confirmed 12/07/21] duloxetine 20 mg capsule,delayed release 40 mg PO QAM 07/17/21 [History Confirmed 12/07/21] metoprolol succinate 25 mg capsule sprinkle, ext. release 24 hr 25 mg PO DAILY 07/17/21 [History Confirmed 12/07/21] tadalafil 5 mg tablet (Cialis) 5 mg PO DAILY 07/17/21 [History Confirmed 12/07/21] colchicine 0.6 mg tablet 0.6 mg PO DAILY 12/07/21 [History Confirmed 12/07/21] finasteride 5 mg tablet 5 mg PO QPM 12/07/21 [History Confirmed 12/07/21] ipratropium bromide 21 mcg (0.03 %) nasal spray See Rx Instructions .Route .COMPLEX 12/07/21 [History Confirmed 12/07/21] nortriptyline 10 mg capsule 20 mg PO QPM 12/07/21 [History Confirmed 12/07/21] Visit Medications (administered) Generic Name Dose Route Start Last Admin Trade Name Freq PRN Reason Stop Dose Admin Sodium Chloride 1,000 mls @ 84 mls/hr 12/07/21 21:43 12/07/21 22:37 Normal Saline 0.9% IV 84 mls/hr CONT GENOVEVA Administration Morphine Sulfate 2 mg 12/07/21 21:43 12/08/21 05:29 Morphine 2 Mg/Ml Inj IV 2 mg Q2HR PRN Administration Pain, Moderate (4-6) Ondansetron HCl 4 mg 12/07/21 21:43 12/08/21 00:14 Ondansetron 4 Mg/2 Ml Inj IV 4 mg Q6HR PRN Administration Nausea And Vomiting Exam Vital Signs (past 8 hours): - 12/08/21 05:01 12/08/21 09:24 12/08/21 09:26 Temperature 98.1 F Pulse Rate 76 96 H Respiratory Rate 18 20 20 Blood Pressure 149/86 H 145/65 H Pulse Oximetry 95 97 96 Oxygen Delivery Method High Flow Nasal Cannula Oxygen Flow Rate 0 45 Fraction of Inspired Oxygen 55 Fraction of Inspired Oxygen 55 Oxygen Delivery Method High Flow Nasal Cannula Oxygen Flow Rate 45 Objective Labs Labs: Laboratory Results - last 24 hr 12/07/21 20:10 SARS-CoV-2 (PCR) Negative Assessment & Plan Assessment & Plan narrative: NEURO: # Hx of ? neuromusclar disease -- Recommend neurology consultation -- Seek PT/OT and OOB as tolerated RESP: # Acute hypoxemia respiratory failure -- Secondary to aspiration pneumonitis vs PNA -- On HFNC -- Check CXR -- Start ceftriaxone and flagyl -- Check resp cx -- Strict NPO -- HOB elevation -- Aspiration precaution GI: # Food impaction -- Needs PLATFORM INSPECTOR consultation -- Strict NPO ENDO: D/w RN. -- GOal BS < Time Spent With Patient Critical Care time: I spent a total of [] minutes of critical care time on this patient's care today; this time is exclusive of procedural time.
--- NOTE | 2021-12-08 09:48 | PM.HP.1 ---
History of Present Illness History of Present Illness Date Patient Seen: 12/08/21 Time Patient Seen: 09:48 Chief complaint: FB stuck in throat Narrative: Patient admitted last evening reportedly handling his own secretions but TOFU stuck high in the throat. He has an underlying neuromuscular disease that causes weakness and dysphasia where he has more trouble in the late day with even soft food. Was in line for the ferry to [place] and decided to come to the ED. Admitted over night with plans of EGD in the AM. Around 7 am the tofu dislodged and blocked his airway. Intubation was under way when Dr. Navarro noted the block of tofu sitting above the trachea and retrieved it. Code was predominant respiratory distress, he did received 2 chest compressions, intubating medications and some trauma to the upper airway in retrieval of the tofu. He was not intubated but did transfer to ICU in stable condition. Patient History Medical History Age-related osteoporosis without current pathological fracture (11/16/16) Benign non-nodular prostatic hyperplasia with lower urinary tract symptoms (12/02/15) Familial Mediterranean fever Gastroesophageal reflux disease without esophagitis (01/03/16) History of renal calculi (01/03/16) Hypercalcemia (01/03/16) Hyperparathyroidism (10/27/16) Mixed hyperlipidemia (01/03/16) Neutropenia (01/03/16) Polyp of colon (11/21/16) Primary insomnia (01/03/16) Retention of urine (12/02/15) Seasonal allergic rhinitis due to pollen (01/03/16) Tinnitus of both ears (01/03/16) Family & Social History Social History: household members spouse Prior Living Arrangements House Safety & Behavioral: Feels Safe in Current Yes Environment Tobacco & Substance use: Smoking Status Never smoker alcohol intake never Substance Use Type marijuana,other Meds Home Medications and Allergies Home Medications Medication Instructions Recorded Confirmed Type TEMAZEPAM (RESTORIL) 15 mg PO HS ##30 05/14/12 12/07/21 Rx alfuzosin 10 mg tablet,extended 10 mg PO QDAY ##0 06/01/16 12/07/21 History release 24 hr alprazolam 0.25 mg tablet 0.25 mg PO BEDTIME PRN Sleep 07/17/21 12/07/21 History duloxetine 20 mg capsule,delayed 40 mg PO QAM 07/17/21 12/07/21 History release metoprolol succinate 25 mg capsule 25 mg PO DAILY 07/17/21 12/07/21 History sprinkle, ext. release 24 hr tadalafil 5 mg tablet (Cialis) 5 mg PO DAILY 07/17/21 12/07/21 History colchicine 0.6 mg tablet 0.6 mg PO DAILY 12/07/21 12/07/21 History finasteride 5 mg tablet 5 mg PO QPM 12/07/21 12/07/21 History ipratropium bromide 21 mcg (0.03 See Rx Instructions .Route .COMPLEX 12/07/21 12/07/21 History %) nasal spray nortriptyline 10 mg capsule 20 mg PO QPM 12/07/21 12/07/21 History Allergies Allergy/AdvReac Type Severity Reaction Status Date / Time atropine Allergy Intermediate pupil Verified 12/07/21 21:56 dilation erythromycin base Allergy Intermediate Verified 12/07/21 21:56 Review of Systems Review of Systems ROS: Yes All systems reviewed with the patient and are negative except as otherwise documented Exam Vital Signs (past 8 hours): - 12/08/21 05:01 12/08/21 09:24 12/08/21 09:26 Temperature 98.1 F Pulse Rate 76 96 H Respiratory Rate 18 20 20 Blood Pressure 149/86 H 145/65 H Pulse Oximetry 95 97 96 Oxygen Delivery Method High Flow Nasal Cannula Oxygen Flow Rate 0 45 Fraction of Inspired Oxygen 55 Fraction of Inspired Oxygen 55 Oxygen Delivery Method High Flow Nasal Cannula Oxygen Flow Rate 45 Const General: cooperative and frail appearing Nutritional Appearance: cachectic Orientation: alert and oriented x3 Other: paralytic drugs still wearing off. [facility] Head: normocephalic and atraumatic Ears: hearing grossly normal bilaterally Eyes Conjunctivae: conjunctivae normal Sclera: sclerae normal Neck Neck: trachea midline Chest Chest: normal inspection of the chest Resp Effort & Inspection: normal respiratory effort and able to speak in complete sentences Cardio Rate: regular rate Rhythm: regular rhythm GI Inspection: normal to inspection Palpation: soft Skin General: atrophy and dry skin Neuro General: patient alert, patient awake and patient oriented x3 Other: muscular weakness due to residual paralytic Extrem General: muscle atrophy Psych Appearance: grossly normal Affect: normal affect Judgment: judgment good Objective Labs Labs: Laboratory Results - last 24 hr 12/07/21 20:10 SARS-CoV-2 (PCR) Negative Assessment & Plan Assessment & Plan narrative: Neuromuscular disease with dyphagia, food bolus likely completely removed. Plan: Steroids for airway swelling, observation for today. CXR and EKG. ICU supply chain planner consulted. COVID-19 COVID-19 status: Negative Time Spent With Patient Time with patient: 30 to 49 minutes with 50% spent counseling/coordinating care Critical Care time: I spent a total of [] minutes of critical care time on this patient's care today; this time is exclusive of procedural time.
[2021-12-08 09:49] LABS: Creatine Kinase 51 U/L (55-170)
[2021-12-08 10:02] LABS: Troponin I < 0.012 ng/mL (0.01-0.034)
[2021-12-08] MEDS: SODIUM CHLORIDE 0.9% 1,000 ML 84 ML IV ×2 (10:32→21:00)
--- NOTE | 2021-12-08 10:55 | CM.DANOTE ---
Patient is a 71 yo male who was admitted on 12/07/21 for Swallow, food in throat. Pt has [facility] and [employer] for insurance and his PCP was Anders Wasserman on [address] but Dr. Wasserman is no longer at that clinic. EMR was reviewed. Per ED MD, pt failed swallow eval and has lodged food in throat and admitted for Surgeon eval this morning. Per RN, pt had a code blue after his food in his throat dislodged and had respiratory failure and pt was almost intubated but ED MD was able to remove the lodged food and pt moved to ICU and remains somewhat sedated and medicated. SW met bedside with pt's spouse Stormy who goes by Matilde and explained role and she confirms they live on [address] with no local family but Dtr in [place]. Pt has a rare neuromuscular disease at baseline and they see a Neurologist at [facility] and [facility] [employer] [facility] for pt's ongoing fine motor issues and swallow needs. Pt uses a 4WW and w/c at baseline and has a hx of GLFs with hx of 6 broken ribs. Last fall was about 2 weeks ago. Pt has a hx of using [facility] on [address] before and spouse would be agreeable with HH if needed and hopeful pt can return home via her POV when medically stable. Spouse plans to remain in the hospital and room in with pt overnight in anticipation of possible d/c tomorrow if medically stable. Plan: SW to follow closely for pt medical progress towards determining any d/c planning needs and r/o HH. Spouse plans to remain bedside and provide transport at d/c and hopeful for home. INA Patterson Discharge Planning/Care Management CM Discharge Assessment Start: 12/08/21 10:51 Freq: Status: Active Protocol: Document 12/08/21 10:52 BF (Rec: 12/08/21 10:55 BF [id number]) Discharge Planning Assessment Assigned Interior Designer INA Vargas DPOA/Assigned Designee Name spouse Stormy Clayton Jaymie Contact Information [phone] Advance Directives? Yes Advance Directives on File No History Provided By Patient,Family Member,Medical Record Has Patient been admitted in last 30 No days? Prior Living Arrangements House Household Members spouse Type of transporation used prior to Relies on Others admit Comment spouse provides transport Independent with ADL's Yes: mostly Is patient alert and oriented? Yes Needs Assistance With Managing Medications,Home Chores / Shopping Caregiver for Another No Comment Coral Nolasco Neurologist and [employer] at baseline for neuromuscular disease DME Already Rented / Owned Wheelchair,FWW / Walker Patient/Family Preference Home with Home Health Barriers to Discharge No Discharge Plan Home with Home Health Transportation Arrangement spouse bedside and can transport if safe for home Additional Comment Pending pt's progress and needs. R/O HH Whiteboard Updated in Patient Room with Yes name and ext. # of Interior Designer Review Status In Process Please Provide Date Initial DC 12/08/21 Assessment Was Performed Next Review Type Continued Stay Review
--- NOTE | 2021-12-08 11:47 | PC.NURSE ---
[address] called. See code blue record sheet. 0831 Pt transported via bed to ICU room 230.
--- NOTE | 2021-12-08 12:53 | RT ---
Max Cotto called in rm 211, upon arrival pt dusky, but with pulses. Pt assisted with breaths, pt with foreign object in airway. ER MD at bedside with glidescope and removed foreign object without incident. Pt bagged to ICU with LMA in place and secured. Contract Analyst Dr. Pabon called and pt watched with assited bagging until awake to remove LMA. Pt was alert and LMA removed without incident. Pt then placed on HHFNC suzanna well. No distress noted pt talking.
[2021-12-08] MEDS: AMPICILLIN/SULBACTAM 3 GM 3 GM in SODIUM CHLORIDE 0.9% 100 ML IV ×3 (13:19→22:40)
--- NOTE | 2021-12-08 13:28 | PC.NURSE ---
0804 Max Cotto called on pt, this nurse attended the code. Pt had a piece of Tofu caught in his throat, Dr Navarro called to bedside and removed the piece of tofu. Pt ended up not needing to be intubated as originally though. He was brought down to ICU for closer monitoring as an obs pt.
[2021-12-08] MEDS: SODIUM CHLORIDE 0.9% FLUSH 10 ML IV (20:53)
[2021-12-09] MEDS: MORPHINE 2 MG/ML INJ IV (00:39)
[2021-12-09 04:00] VITALS: BP 136/67; PULSE 51; RESP 18; TEMP 37.5; O2SAT 97
[2021-12-09] MEDS: AMPICILLIN/SULBACTAM 3 GM 3 GM in SODIUM CHLORIDE 0.9% 100 ML IV (04:42)
[2021-12-09] MEDS: ONDANSETRON 4 MG/2 ML INJ IV (05:57)
--- NOTE | 2021-12-09 06:42 | PC.NURSE ---
Airplane Dispatch Clerk Note-Patient is A/O x3, little forgetful and impulsive. Denies respiratory distress, SpO2 >92% on 2L NC. NPO, has a sore throat and rib pain, IV morphine given per prn order. Zofran given in am for nausea and abdominal discomfort, says antibiotics always do this Frequent trips into BR to use urinal with walker and 1 person assist.
--- NOTE | 2021-12-09 08:03 | PM.PN.1 ---
Subjective Subjective Date Patient Seen: 12/09/21 Time Patient Seen: 08:03 Interval history: Patient feeling back to baseline. No issues over night. Exam Vital Signs (past 8 hours): - 12/09/21 04:00 Temperature 99.5 F Pulse Rate 51 L Respiratory Rate 18 Blood Pressure 136/67 Pulse Oximetry 97 Fraction of Inspired Oxygen 55 Oxygen Delivery Method Nasal Cannula Oxygen Flow Rate 2 Narrative Exam Narrative: No respiratory distress, NC 02 can be weaned off. voice is normal. Neck Neck: trachea midline Chest Chest: normal inspection of the chest Resp Effort & Inspection: normal respiratory effort and able to speak in complete sentences Objective Labs Labs: Laboratory Results - last 24 hr 12/08/21 09:28 Total Creatine Kinase 51 L CK-MB (CK-2) TNP CK-MB (CK-2) Rel Index TNP Troponin I < 0.012 [facility] Medical History Age-related osteoporosis without current pathological fracture (11/16/16) Benign non-nodular prostatic hyperplasia with lower urinary tract symptoms (12/02/15) Familial Mediterranean fever Gastroesophageal reflux disease without esophagitis (01/03/16) History of renal calculi (01/03/16) Hypercalcemia (01/03/16) Hyperparathyroidism (10/27/16) Mixed hyperlipidemia (01/03/16) Neutropenia (01/03/16) Polyp of colon (11/21/16) Primary insomnia (01/03/16) Retention of urine (12/02/15) Seasonal allergic rhinitis due to pollen (01/03/16) Tinnitus of both ears (01/03/16) Social History household members: spouse Smoking Status: Never smoker alcohol intake: never Assessment & Plan Assessment & Plan narrative: Admitted for food bolus in esophagus that dislodged onto the trachea and was retrieved when intubation was under way. No intubation or EGD required. Plan: discharge home. COVID-19 COVID-19 status: Negative Time Spent With Patient Time with patient: less than 30 minutes Critical Care time: I spent a total of [] minutes of critical care time on this patient's care today; this time is exclusive of procedural time.
--- NOTE | 2021-12-09 08:35 | CM.DPC ---
Per MD, pt is medically stable for discharge. Per RN, pt does not need HH. RN states they are going to follow up with MD post discharge. Pt to discharge home today via spouse POV. No further needs. Chela Waterman, HAIR/DCP
== END 2021-12-09 09:12 | disposition home or self-care (01) ==
LOC: ED 20:09 → AC 20:10 → ICU 12-08 09:00
PROVIDERS: Admitting Provider Surgery; Emergency Provider Emergency Medicine; PCP Family Medicine; Referring Provider Emergency Medicine; Visit Provider Surgery
DX: T18.128A Food in esophagus causing other injury, initial encounter (principal); R06.03 Acute respiratory distress; G70.9 Myoneural disorder, unspecified; K21.9 Gastro-esophageal reflux disease without esophagitis; Z20.822 Contact with and (suspected) exposure to COVID-19; X58.XXXA Exposure to other specified factors, initial encounter
CPT/HCPCS: 36415; 71045; 82550; 84484; 87635; 92950; 96365; 96366; 96375; 96376; 99219; 99224; 99284; C9803; G0378; C9113; J0295; J1610; J2270; J2405; J3010; J3360